=== PATIENT | male | born 1950 | race Caucasian/White ===

== ENCOUNTER 2018-06-10 05:55 | Emergency (ER) | payer MEDICARE, SELFPAY ==
[2018-06-10 05:57] VITALS: BP 127/65; PULSE 101; RESP 20; TEMP 36.8; O2SAT 94; BMI 32.0
--- NOTE | 2018-06-10 05:57 | RAD_ITS ---
STUDY: X-RAY CHEST REASON FOR EXAM: Male, 68 years old. Heaviness in the chest for 3 days. TECHNIQUE: Single AP portable view of the chest. COMPARISON: None. FINDINGS: The lungs are clear and expanded. There is no demonstrated pleural abnormality. Normal size heart. Normal mediastinum and zay. Normal visualized pulmonary arteries. There is atherosclerotic calcification of the aortic arch with tortuosity. There are degenerative changes of the visualized thoracic spine. Normal visualized ribs, clavicles, and shoulders. There is no demonstrated abnormality of the visualized soft tissue structures of the upper abdomen. RAD/Chest 1 View (Portable) IMPRESSION: No evidence for acute cardiopulmonary pathology. Electronically Signed: Keith Martínez MD at 6:58 EST , Service support ,
[2018-06-10 06:03] VITALS: O2SAT 93
[2018-06-10 06:20] LABS: Absolute Lymphocyte Count 1.33 X10^3/ul (0.83-4.51); Absolute Neutrophil Count 6.1 X10^3/uL (2.0-7.7); Basophil# 0.01 X10^3/uL; Basophil% 0.1 % (0-1); Eosinophils% 1.3 % (0-5); Hematocrit 41.9 % (40-54); Hemoglobin 14.1 g/dl (13.0-16.5); Lymphocyte # 1.33 X10^3/ul (4.0); Lymphocyte % 16.6 % (19-41); Mean Corp Hgb Conc 33.7 g/gl (32-36); Mean Corpuscular Hgb 28.7 pg (27.0-32.0); Mean Corpuscular Volume 85.3 fL (80-94); Mean Platelet Vol. 9.3 fl (6.2-12.0); Monocyte# 0.46 X10^3/uL; Monocyte% 5.8 % (0-10); Neutrophil # 6.09 X10^3/uL (2.7-7.7); Neutrophil % 76.1 % (47-70); Platelet Count 144 K/mm3 (150-450); RBC Distribution Width SD 40.6 fl (35.1-43.9); Red Blood Count 4.91 M/mm3 (4.6-6.2)
[2018-06-10 06:26] LABS: POSITIVE COUNT NO; POSITIVE DIFFERENTIAL NO; POSITIVE MORPHOLOGY NO
[2018-06-10 06:37] LABS: Anion Gap 12 (5-15); BUN 13 mg/dL (7-18); BUN/Creat Ratio 15.6 RATIO (10-20); Calcium,Total 8.7 mg/dL (8.5-10.1); Chloride 101 mmol/L (98-107); Creatinine, Serum 0.83 mg/dL (0.70-1.30); EST Glomerular Filtration Rate 97 mL/min (>60); Est Glom Filt Rate - Afr Amer 117 mL/min (>60); Estimated Creatinine Clearance 85.51 ml/min; Glucose 181 mg/dL (74-106); Potassium 4.1 mmol/L (3.5-5.1); Sodium Level 137 mmol/L (136-145)
[2018-06-10 06:48] VITALS: BP 108/70; PULSE 80; RESP 17; O2SAT 93
--- NOTE | 2018-06-10 07:30 | ED.VISSUMM ---
- ER Visit Summary Date of Service: 06/10/18 Chief Complaint: Chest pain History of Present Illness: The patient is a [address] Ramos. He reports this chest pain began 3 days ago. It is a constant heaviness and pressure that he states is 4 out of 10 at worst and 2 out of 10 currently. It is worsened by laying down. It is unchanged with exertion, breathing, or movement. He states that he did get relief with cayenne pepper. He had no relief with nitroglycerin. There are no associated symptoms. No nausea, vomiting, diaphoresis, or shortness of breath. Physical Examination: Vitals: Stable. Afebrile. General: Well-nourished and well-developed. Head: Normocephalic atraumatic. Neck: Supple, no lymphadenopathy. No JVD. Nontender. Cardiovascular: Regular rate and rhythm. No murmurs. Respiratory: No respiratory distress. Clear to auscultation bilaterally. Abdominal: Soft, nontender, nondistended, normal bowel sounds. No guarding, rebound, or peritoneal signs. Back: Nontender. Extremities: Nontender, no edema. Skin: Normal color, no rash. Neurologic: Alert and oriented ?3. Cranial nerves II through XII are intact. Normal strength and sensation. Psych: Normal affect. Test Results: EKG is sinus at [address] changes. There is no old EKG for comparison. Troponin is negative. Chem-7 is more for glucose of 181. CBC is more for platelets 144, segmented neutrophils of 76, lymphocytes of 17. Chest x-ray is normal. Emergency Department Course and Treatment: Patient was treated with aspirin. He is resting comfortably. Treatment Plan: I discussed treatment options with the patient. I wanted to admit him to the hospital for stress test and further evaluation. He is refusing this. The patient was discussed with Dr. Weiss who agrees that he should stay and would like him to be signed out AGAINST MEDICAL ADVICE. I discussed this with the patient who continues to refuse to stay. I had a prolonged discussion with him about the possible risks of this. He understands these risks and seems to have the capacity to make this decision. Return to the emergency department for any worsening symptoms. Disposition: To home AGAINST MEDICAL ADVICE. Impression: 1. Atypical chest pain. 2. [place] score of 2. 3. Left AMA. This note was generated with Dragon dictation software. It may contain incorrect words, spelling, and punctuation that were not noted in review of the chart prior to signing ED Disposition - Plan for ED Patient: Chief Complaint: Chest Pain Instructions: ED Chest Pain Atypical Unkn Cause Referrals: Jc Weiss MD [STAFF PHYSICIAN] - As soon as possible Additional Instructions: Take a baby aspirin every day.
[2018-06-10 08:02] VITALS: BP 112/77; PULSE 75; RESP 16; O2SAT 94
[2018-06-10 11:46] LABS: Erythrocyte Sedimentation Rate 9 mm/hr (0-20)
== END 2018-06-10 08:22 | disposition left against medical advice (07) ==
PROVIDERS: Emergency Provider Emergency Medicine; Family Provider Family Medicine; PCP Family Medicine
DX: R07.89 Other chest pain (principal); E11.9 Type 2 diabetes mellitus without complications; I10 Essential (primary) hypertension; K21.9 Gastro-esophageal reflux disease without esophagitis; Z79.84 Long term (current) use of oral hypoglycemic drugs; Z79.899 Other long term (current) drug therapy
CPT/HCPCS: 71045; 80048; 84484; 85025; 85652; 93005

== ENCOUNTER 2018-06-10 20:26 | Observation (INO) | payer MEDICARE, SELFPAY ==
[2018-06-10 05:57] VITALS: BMI 32.0
[2018-06-10 20:27] VITALS: BP 139/85; PULSE 77; RESP 20; TEMP 36.6; O2SAT 93; BMI 32.3
--- NOTE | 2018-06-10 21:33 | ED.VISSUMM ---
- ER Visit Summary Date of Service: 06/10/18 Chief Complaint: Chest pressure History of Present Illness: The patient is a 68 M presents for evaluation of chest pressure. Patient was seen this morning for the same complaint and left AGAINST MEDICAL ADVICE because he did not want to sit around in the hospital all day waiting for further testing to be done tomorrow morning. Patient is still having the substernal chest pressure. It does not radiate. He denies any shortness of breath, fever, cough, abdominal pain, nausea or vomiting or other complaints. Pain is worse with lying flat and improved with sitting straight up. It has been present for 3 days, with acute worsening early this morning. Patient states symptoms have subsided during the day and it is currently a 1 out of 10. He took a full aspirin prior to coming back to the emergency department and has been taking cayenne pepper for the pain. History of diabetes, hypertension, hyperlipidemia and fast heart rate. No tobacco use. Physical Examination: Vital signs: afebrile, hemodynamically stable, no hypoxia on room air General: well nourished, well developed, in no distress Skin: warm, dry, no rash, no pallor HEENT: normocephalic and atraumatic; PERRL, EOMI, moist mucous membranes Cardiovascular: regular rate and rhythm without murmurs, no peripheral edema, 2+ pulses all distal extremities Respiratory: No increased work of breathing, lungs are clear to auscultation bilaterally, no rales, rhonchi or wheezing Abdominal: Abdomen is soft, nontender with normoactive bowel sounds, no guarding or rebound, no masses MSK: Moves all extremities, no deformities, normal strength Neuro: Awake and alert, oriented ?4. No facial droop, sensation and motor function intact and symmetric Test Results: Abnormal Lab Results 06/10/18 06/10/18 06/10/18 20:52 20:52 20:52 D-Dimer Quant (PE/DVT) 1.02 H* Troponin I < 0.015 C-React Prot Ext Range < 2.90 Medications Given Discontinued Medications Enoxaparin Sodium (Lovenox) 100 mg SC X1 ONE Stop: 06/10/18 22:13 Last Admin: 06/10/18 22:50 Dose: 100 mg Ibuprofen (Motrin) 600 mg PO X1 ONE Stop: 06/10/18 22:14 Last Admin: 06/10/18 22:50 Dose: 600 mg Nitroglycerin (Nitrostat) 0.4 mg SUBLINGUAL Q5M CRISTAL Stop: 06/10/18 21:41 Last Admin: 06/10/18 21:54 Dose: Not Given Admin: 06/10/18 21:46 Dose: 0.4 mg Admin: 06/10/18 21:41 Dose: 0.4 mg Emergency Department Course and Treatment: Patient presents for further evaluation of his chest pressure after leaving AMA this morning. EKG was repeated and showed no changes from this morning. Troponin remained negative. Patient was discussed with Dr. Weiss, who stated patient could still be admitted for an echo and stress test tomorrow morning. We discussed the normal ESR, and Dr. Weiss requested a CRP also be performed, which was normal. Because the patient has had positional change in his pain and it is been constant with no changes in the troponin, we discussed the possibility of a pulmonary embolism. Patient has no risk factors for PE and no pleuritic chest pain, hypoxia, tachycardia or shortness of breath. A d-dimer was performed and was mildly elevated at 1. Patient was admitted for further chest pain rule out. The d-dimer result returned after patient was admitted, and was discussed with the hospitalist. Treatment Plan: [] Disposition: [] Impression: Chest pain, concern for ACS, elevated d-dimer This note was generated with [employer] dictation software. It may contain incorrect words, spelling, and punctuation that were not noted in review of the chart prior to signing ED Disposition - Plan for ED Patient: Disposition: Acute Care [facility] Chief Complaint: Chest Pain
[2018-06-10 21:41] VITALS: BP 126/62; PULSE 81
[2018-06-10 21:43] VITALS: BP 126/62; PULSE 86; RESP 20; O2SAT 98
[2018-06-10 21:46] VITALS: BP 108/57; PULSE 84
[2018-06-10 22:39] LABS: CRP < 2.90 mg/L (0.0-3.0)
[2018-06-10] MEDS: Enoxaparin 100 MG/ML Syringe SC (22:50)
[2018-06-10] MEDS: Ibuprofen 600 MG Tablet PO (22:50)
[2018-06-10 22:53] VITALS: BP 107/59; PULSE 275; RESP 16; O2SAT 96
--- NOTE | 2018-06-10 23:11 | HP.PCM_ITS ---
History of Present Illness Date of Admission: 06/11/18 Chief Complaint: chest pressure The patient is a 68 year old M with a PMH of hypertension admitted through the ED on with a complaint of chest pressure. He says he was woken up at 3am by this pressure like pain, which he said was mild. He had no associated shortness of breath, palpitation, dizziness or lightheadedness. Review of systems otherwise negative. He came into the ED in the morning where EKG was negative and troponins were negative. He was due to admitted for stress test tomorrow but he decided to sign out AGAINST MEDICAL ADVICE because he did not see the point of staying in the hospital till the next day. However I do he decided to come back this evening to be admitted for the stress test tomorrow. Troponins and EKG were negative. He is being admitted to be managed for chest pain to rule out ACS. Past Medical History Allergies glyburide Allergy (Verified 06/10/18 20:39) Rash sulindac [From Clinoril] Allergy (Verified 06/10/18 20:39) Rash Home Medications: Ambulatory Orders Medication Instructions Recorded [place] 3 mg PO DAILY 06/10/18 Cider Vinegar [Apple Cider Vinegar] 600 mg PO DAILY 06/10/18 Glipizide 5 mg PO BID 06/10/18 Lisinopril [Zestril] 20 mg PO DAILY 06/10/18 Metformin HCl 500 mg PO 4X/DAY 06/10/18 Metoprolol Tartrate 25 mg PO BID 06/10/18 Multivitamin [Multiple Vitamins] 1 tab PO DAILY 06/10/18 Niacin 500 mg PO 4X/DAY 06/10/18 [place] 3 Fish Oil Softgel 1 tab PO DAILY 06/10/18 Oxybutynin Chloride [Ditropan Xl] 10 mg PO DAILY 06/10/18 Sitagliptin Phosphate [Januvia] 100 mg PO DAILY 06/10/18 Sumatriptan Succinate [Imitrex] 50 mg PO .X1 PRN 06/10/18 Tamsulosin HCl [Flomax] 0.4 mg PO DAILY 06/10/18 Calcium Citrate/Vitamin D3 1,000 mg PO 4X/DAY 06/11/18 [Calcium Citrate - Vit D Tablet] Omeprazole 20 mg PO DAILY 06/11/18 Surgical History: - - rotator cuff surgery Psychiatric History: No pertinent psych hx Lives: With Family Smoking Status: Never smoker Alcohol: None Drugs: None - *Family History Maternal History Items: No pertinent history Paternal History Items: No pertinent history Review of Systems Constitutional: Denies: Chills, Fever, Weight Change Eyes: Denies: Blurred vision HEENT: Denies: Head Aches, Sinus Congestion, Sinus Drainage Cardiovascular: Denies: Chest Pain, Palpitations Respiratory: Denies: Cough, Shortness of Breath, Shortness of breath at rest, Sputum production Gastrointestinal: Denies: Abdominal Pain, Nausea, Vomiting Genitourinary: Denies: Dysuria Musculoskeletal: Denies: Joint Pain, Joint Tenderness Skin: Denies: Rash, Wounds Neurological: Denies: Numbness, Tingling, Focal weakness Psychiatric: Denies: Anxiety, Depression, Homicidal Ideations, Suicidal Ideations Hematologic/ Lymphatic: Denies: Easy Bruising, Easy Bleeding VTE Information - Inpt Only VTE Present on Admission: No VTE Pharm Prophylaxis ordered?: Yes - Physical Exam General: Alert, Oriented x3, Cooperative, No apparent distress HEENT: Atraumatic, PERRLA, EOMI, Normocephalic Oral: Moist Mucosa Neck: Supple, No JVD, Negative Carotid Bruits Lungs: Clear to auscultation, Normal air movement, No rhonchi, No wheeze, No rales Cardiovascular: Regular rate, Regular Rhythm, Normal S1, Normal S2, No murmurs Abdomen: Bowel Sounds Present, Soft, Non Tender, Non-Distended, No Hepato- splenomegaly Extremities: No clubbing, No cyanosis, No edema, Capillary Refill Less than 3 Seconds Skin: No rashes, No breakdown Musculoskeletal: No Tenderness to Palpation of Joints or Extremities Lymphatic: No Cervical, Supraclavicular, or Inguinal Adenopathy Neurological: Cranial nerves II-XII grossly intact Psych/Mental Status: Normal Affect, Appropriate, Alert and oriented to time, place, person, mood and affect Vital Signs Temp Pulse Resp BP Pulse Ox 97.9 F 275 H 16 107/59 L 96 06/10/18 20:27 06/10/18 22:53 06/10/18 22:53 06/10/18 22:53 06/10/18 22:53 Oxygen Flow Rate (L/min) 2 Oxygen Delivery Method Nasal Cannula Weight: 225 lb 12.054 oz Body Mass Index (BMI) 32.3 Laboratory Tests Past 24 Hrs 06/10/18 06/10/18 06/10/18 20:52 20:52 20:52 D-Dimer Quant (PE/DVT) Pending Troponin I < 0.015 C-React Prot Ext Range < 2.90 Assessment/Plan 68 y/o presenting with a complaint of chest pain for 1 day 1. Chest pain, to rule out ACS * Describes chest pain as mild and more pressure-like. * Initial troponin negative. EKG showed no acute ST changes. * D-dimer elevated at 1.02. * Will order CT angiogram to rule out PE. 2. Elevated D Dimer: * D dimer is 1.02. CT angiogram ordered, showed no PE. * Large hiatal hernia and right adrenal adenoma. Thyroid nodules; to follow up with thyroid [facility] on outpatient basis. * 3. Diabetes mellitus: on glipizide and metformin and linagliptin. Will hold in preparation for possible stress test tomorrow morning. ISS. Accuchecks ACHS 4. BPH: on flomax 5. Hypertension: on lisinopril. 6. Right adrenal nodule * incidental finding on CTA * low atenuation nodule, consistent with adenoma * to follow up with PCP and consultative sales associate upon discharge. * DVT prophylaxis: lovenox Code Visit OBSV E&M: 89299 Initial observation care L3
[2018-06-10 23:13] LABS: D-Dimer Quantitative (DVT/PE) 1.02 FEU/ug/m (0.27-0.49)
[2018-06-11] VITALS (9 sets, daily range): BP systolic 100–131; BP diastolic 64–80; PULSE 68–98; RESP 16–18; TEMP 36.4–36.6; O2SAT 93–95; BMI 31.6
--- NOTE | 2018-06-11 01:37 | CT_ITS ---
STUDY: CTA CHEST REASON FOR EXAM: Male, 68 years old. Chest pressure for 3 days. Elevated d-dimer. History of hypertension and diabetes. RADIATION DOSAGE (If Supplied By Facility): CTDIvol = ( 23.15 ) mGy, DLP = ( 718.98 ) mGycm TECHNIQUE: The examination was performed with the intravenous administration of 100ml ml of Isovue 300 contrast material. Post-processing of the angiographic images was performed, with multiplanar reformation, but without 3D reconstruction. Individualized dose optimization techniques were used for this CT. COMPARISON: Chest x-ray 06/10/2018. FINDINGS: There are small thyroid nodules. Normal enhancement of the main pulmonary artery and right and left pulmonary arteries. Normal enhancement of the bilateral peripheral pulmonary arteries. There is no demonstrated pulmonary embolism. There is mild atherosclerotic calcification of the thoracic aorta and visualized great vessels. There is no demonstrated aortic dissection. Normal heart and pericardium. There are coronary artery calcifications. Normal mediastinum. Normal hilar regions. Normal visualized trachea and bronchi. The lungs are mildly under expanded. Normal pulmonary parenchyma. There is a calcified pulmonary granuloma in the right upper lobe. Normal pleura. Normal chest wall structures. There are degenerative changes of thoracic spine. There is a large hiatal hernia. There is a 3.5 cm low-attenuation right adrenal nodule, consistent with an adenoma. Small cysts in the right and left lobes of the liver. CT/CTA Chest W/WO Contrast IMPRESSION: No demonstrated pulmonary embolism, aortic aneurysm, or aortic dissection. Atherosclerosis. No evidence for acute cardiopulmonary pathology. Large hiatal hernia. Right adrenal adenoma. Thyroid nodules. Suggest elective follow-up thyroid ultrasound. Electronically Signed: Keith Martínez MD at 3:09 EST , Service support ,
[2018-06-11 03:06] LABS: Absolute Lymphocyte Count 1.84 X10^3/ul (0.83-4.51); Absolute Neutrophil Count 3.1 X10^3/uL (2.0-7.7); Basophil# 0.01 X10^3/uL; Basophil% 0.2 % (0-1); Eosinophil# 0.15 X10^3/uL; Eosinophils% 2.7 % (0-5); Hematocrit 38.8 % (40-54); Hemoglobin 13.2 g/dl (13.0-16.5); Lymphocyte # 1.84 X10^3/ul (4.0); Lymphocyte % 33.2 % (19-41); Mean Corpuscular Hgb 29.5 pg (27.0-32.0); Mean Corpuscular Volume 86.6 fL (80-94); Mean Platelet Vol. 9.9 fl (6.2-12.0); Monocyte# 0.47 X10^3/uL; Monocyte% 8.5 % (0-10); Neutrophil # 3.08 X10^3/uL (2.7-7.7); Neutrophil % 55.4 % (47-70); POSITIVE COUNT NO; POSITIVE DIFFERENTIAL NO; POSITIVE MORPHOLOGY NO; Platelet Count 147 K/mm3 (150-450); RBC Distribution Width CV 12.8 % (11.6-14.6); RBC Distribution Width SD 39.4 fl (35.1-43.9); Red Blood Count 4.48 M/mm3 (4.6-6.2); White Blood Count 5.6 K/mm3 (4.4-11.0)
[2018-06-11 03:12] LABS: International Normalized Ratio 1.1; Prothrombin Time (Protime)PT. 14.4 SECONDS (11.7-14.9)
[2018-06-11 03:13] LABS: Partial Thromboplast Time 35.5 Seconds (24.1-36.2)
[2018-06-11 03:19] LABS: Anion Gap 11 (5-15); BUN 13 mg/dL (7-18); BUN/Creat Ratio 15.7 RATIO (10-20); Calcium,Total 8.6 mg/dL (8.5-10.1); Chloride 102 mmol/L (98-107); Creatinine, Serum 0.83 mg/dL (0.70-1.30); EST Glomerular Filtration Rate 97 mL/min (>60); Est Glom Filt Rate - Afr Amer 118 mL/min (>60); Estimated Creatinine Clearance 85.51 ml/min; Glucose 104 mg/dL (74-106); Potassium 3.8 mmol/L (3.5-5.1); Sodium Level 139 mmol/L (136-145)
[2018-06-11] MEDS: Lisinopril 20 MG Tablet PO (06:35)
[2018-06-11 07:21] LABS: Bedside Glucose 125 mg/dL (70-110)
--- NOTE | 2018-06-11 08:00 | ECHOD_ITS ---
Reason For Study: Chest Pain Procedure This was a 2D Doppler, Color Flow transthoracic echocardiogram. The exam was of adequate technical quality. Exam performed in department. Left Ventricle Normal LV size. Apical false tendon noted. Left ventricular systolic function is normal. The estimated ejection fraction is 65 %. No evidence for diastolic dysfunction. No regional wall motion abnormalities noted. Right Ventricle Normal RV size. Normal systolic function. Atria Normal left atrium. Normal right atrium. No doppler evidence for ASD. Mitral Valve There is no mitral annular calcification. Normal mitral valve. Trivial mitral valve insufficiency. Tricuspid Valve Normal tricuspid valve. Trivial tricuspid valve insufficiency. Right ventricular systolic pressure estimated to be 26 mmHg. Aortic Valve Trisinus/trileaflet aortic valve. Mild focal aortic valve thickening. Pulmonic Valve The pulmonic valve is not well visualized. Trivial pulmonic valve insufficiency. Great Vessels Normal sized aortic root. Pericardium/Pleural No pericardial effusion. MMode/2D Measurements & Calculations LVIDd: 5.1 cm IVSd: 0.98 cm Ao root diam: 3.7 cm LVIDs: 3.7 cm LVPWd: 0.89 cm LA dimension: 3.6 cm RVDd: 3.9 cm FS: 27.1 % LAV(MOD-sp4): 50.5 ml LA A4 area: 19.3 cm2 RA A4 area: 17.4 cm2 Time Measurements MV dec time: 0.25 sec Doppler Measurements & Calculations MV E max heriberto: 64.4 cm/sec Lat Peak E' Heriberto: 9.1 cm/sec Med Peak E' Heriberto: 5.7 cm/sec MV A max heriberto: 79.9 cm/sec E/E' lat: 7.1 E/E' med: 11.3 MV E/A: 0.81 MV V2 max: 91.2 cm/sec MV P1/2t max heriberto: 71.8 cm/sec Ao V2 max: 94.9 cm/sec MV max P.3 mmHg MV P1/2t: 106.8 msec Ao max P.6 mmHg MV V2 mean: 52.0 cm/sec MV dec slope: 197.0 cm/sec2 MV mean P.2 mmHg MVA(P1/2t): 2.1 cm2 MV V2 VTI: 22.9 cm LV V1 max: 78.6 cm/sec PA V2 max: 104.0 cm/sec TR max heriberto: 240.7 cm/sec LV V1 max P.5 mmHg TR max P.2 mmHg Interpretation Summary Left ventricular systolic function is normal. The estimated ejection fraction is 65 %. Apical false tendon noted. Trivial mitral valve insufficiency. Trivial tricuspid valve insufficiency. Mild focal aortic valve thickening. Trivial pulmonic valve insufficiency. Right ventricular systolic pressure estimated to be 26 mmHg. No evidence for diastolic dysfunction. Ordering Physician: Brandi Porras Referring Physician: Levon Ramos Performed By: Jaron Islas RCS
--- NOTE | 2018-06-11 10:02 | STRESSREP ---
Stress Test Report Date: 06/11/2018 Procedure: Stress nuclear imaging study Indications: Chest pain Consent: Per the patient Procedure: The patient exercised on a Klaus protocol for 3 minutes Completing Stage I achieving a peak heart rate of 150 beats per minute (100% predicted maximal heart rate) with a peak blood pressure of 152/80 mmHg and a peak MET capacity of approximately 4 METS. The patient had a baseline ECG demonstrated normal sinus rhythm. The peak exercise ECG demonstrated somatic/motion artifact with no obvious ECG changes. There were occasional PVCs pretest and during recovery. The functional capacity was considered decreased. The patient complained of chest discomfort pretest, during exercise, and recovery without significant change. The examination was discontinued secondary to leg discomfort and dyspnea. Impression: 1. Technically adequate (percent predicted maximal heart rate greater than 85%) exercise tolerance test 2. Peak exercise ECG was semantic/motion artifact with no obvious ECG changes 3. Occasional PVC pretest and during recovery 4. Nuclear images pending Myocardial perfusion imaging study: Technique: The patient was injected with 14.6 mci of technetium 99 M Cardiolite and subsequently rest SPECT Cardiolite nuclear imaging was obtained in the horizontal long, vertical long, and short axis views. The patient exercised on a Klaus protocol for 3 minutes completing Stage I achieving a peak heart rate of 150 beats per minute (100% predicted maximal heart rate) with a peak blood pressure 152/80 mmHg and a peak MET capacity of approximately 4 months. The patient was injected with 44.7 mci of technetium 99 M Cardiolite and subsequently stress SPECT Cardiolite nuclear imaging was obtained in the horizontal long, vertical long, and short axis views. A gated Cardiolite study at peak stress was obtained. Interpretation: Rest and stress SPECT Cardiolite nuclear imaging demonstrate relative uniform tracer uptake with a small area of subtle diminished tracer uptake in the apical views appearing compatible with apical physiologic thinning. There is end systolic thickening and brightening. The gated Cardiolite study demonstrates myocardial thickening and inward wall motion. The reported LVEF is 64 per cent. Impression: 1. Rest and stress SPECT Cardiolite nuclear imaging demonstrate myocardial perfusion changes appearing compatible with physiologic apical thinning with no myocardial perfusion changes considered diagnostic for associated stress induced myocardial ischemia or previous myocardial injury/infarction. 2. The gated Cardiolite study reports an LVEF of 64%. This note was generated using a voice recognition system and there may be incorrect words, spelling or punctuation that were not noted when reviewing the office note prior to saving.
[2018-06-11 11:21] LABS: Bedside Glucose 221 mg/dL (70-110)
--- NOTE | 2018-06-11 12:44 | DCINST_ITS ---
You will use the following diet at home:: Regular, Other - avoid spicy foods and cayanne pills. Your food should be the consistency of: Regular Your liquids should be the consistency of: Regular/Thin Call your doctor if you observe: Fever of 101 or Higher, Shortness of breath, Chest pain Allergies/Adverse Reactions: Allergies glyburide Allergy (Verified 06/10/18 20:39) Rash sulindac [From Clinoril] Allergy (Verified 06/10/18 20:39) Rash Medications to take at Discharge Glipizide 5 mg PO BID 06/10/18 Lisinopril [Zestril] 20 mg PO DAILY 06/10/18 Metoprolol Tartrate 25 mg PO BID 06/10/18 Multivitamin [Multiple Vitamins] 1 tab PO DAILY 06/10/18 Niacin 500 mg PO 4X/DAY 06/10/18 [place] 3 Fish Oil Softgel 1 tab PO DAILY 06/10/18 Oxybutynin Chloride [Ditropan Xl] 10 mg PO DAILY 06/10/18 Sitagliptin Phosphate [Januvia] 100 mg PO DAILY 06/10/18 Sumatriptan Succinate [Imitrex] 50 mg PO .X1 PRN 06/10/18 Tamsulosin HCl [Flomax] 0.4 mg PO DAILY 06/10/18 Calcium Citrate/Vitamin D3 [Calcium Citrate - Vit D Tablet] 1,000 mg PO 4X/DAY 06/11/18 Metformin HCl 500 mg PO 4X/DAY #0 06/11/18 Omeprazole 20 mg PO BID #0 06/11/18 Primary Care Physician: Levon Ramos DO [Primary Care Provider] - Test Results: Test results from this visit will be discussed in further detail at your follow- up appointment, if applicable. Please Follow Up With: tourist camp attendant When: next scheduled appointment. Proposed Discharge Date: 06/11/18
--- NOTE | 2018-06-11 12:44 | PCM.DC.SUM ---
Discharge Date and Diagnosis - Problem List Patient Problems: Active and Suspected Problems Chest pain (Acute) Date of Admission: 06/10/18 Date of Discharge: 06/11/18 - Primary Discharge Diagnosis Active and Suspected Problems Chest pain (Acute) Hospital Course and Treatment Imaging Results: 06/11/18 05:55 Nuclear Stress Test - Treadmil [NM] AM (NON MEDS) 06/11/18 08:00 Echo Complete [ECHO] Routine Clinical Impression(s) from Imaging Studies Chest CTA 06/11/18 01:37 IMPRESSION: No demonstrated pulmonary embolism, aortic aneurysm, or aortic dissection. Atherosclerosis. No evidence for acute cardiopulmonary pathology. Large hiatal hernia. Right adrenal adenoma. Thyroid nodules. Suggest elective follow-up thyroid ultrasound. Electronically Signed: Keith Martínez MD at 3:09 EST , Service support , Operations: None Procedures: None Summary of Care Provided: The patient is a 68 year old Loree Blevins with midsternal chest pain. Patient underwent CT angiogram of the chest of his neck well as a nuclear stress test that was also negative. Patient does have known GERD. Patient states that when he had his chest pain he took a Cayenne pill. Patient states that Cayenne makes everything better. Told him that the pain seems more consistent with reflux and advised against using cayenne [place] as well as to avoid spicy foods. Patient does not have a known history of GERD plus a history of Morley's esophagus. Patient has a follow-up appoint with his room service manager in the coming weeks for a screening colonoscopy. I advised patient to increase his omeprazole to twice daily for the next couple weeks and to follow-up with room service manager to see about possibly getting an EGD in the future. Spent several years since his last EGD. [] Patient Problems: Active and Suspected Problems Chest pain (Acute) - Physical Exam General: Alert, No apparent distress HEENT: Atraumatic, Normocephalic Oral: Moist Mucosa, No Gingival or Mucosal Lesions/ Ulcerations Lungs: Clear to auscultation, Normal air movement, No rhonchi, No wheeze Cardiovascular: Regular rate, Regular Rhythm, Normal S1, Normal S2, No murmurs Abdomen: Bowel Sounds Present, Soft, Non Tender, Non-Distended, No Hepato-splenomegaly Musculoskeletal: - - no reproducible chest wall tenderness. Vital Signs Temp Pulse Resp BP Pulse Ox 36.4 C L 98 16 131/67 H 95 06/11/18 09:13 06/11/18 10:55 06/11/18 09:13 06/11/18 09:13 06/11/18 09:19 Oxygen Flow Rate (L/min) 2 Oxygen Delivery Method Room Air Weight: 99.9 kg Body Mass Index (BMI) 31.6 Intake and Output for Last 24 Hours 06/09/18 06/10/18 06/11/18 23:59 23:59 23:59 Intake Total 240 / 240 Balance 240 / 240 Laboratory Tests Past 24 Hrs 06/10/18 06/10/18 06/10/18 20:52 20:52 20:52 WBC RBC Hgb Hct MCV MCH MCHC RDW RDW Differential Plt Count MPV Immature Gran % (Auto) Neut % (Auto) Lymph % (Auto) [place] % (Auto) Eos % (Auto) Baso % (Auto) Absolute Neuts (auto) Absolute Lymphs (auto) Total Counted PT INR APTT D-Dimer Quant (PE/DVT) 1.02 H* Sodium Potassium Chloride Carbon Dioxide Anion Gap BUN Creatinine Estim Creat Clear Calc Est GFR (MDRD) Af Amer Est GFR (MDRD) Non-Af BUN/Creatinine Ratio Glucose Calcium Troponin I < 0.015 C-React Prot Ext Range < 2.90 06/11/18 06/11/18 06/11/18 00:05 02:42 02:42 WBC 5.6 RBC 4.48 L Hgb 13.2 Hct 38.8 L MCV 86.6 MCH 29.5 MCHC 34.0 RDW 12.8 RDW Differential 39.4 Plt Count 147 L MPV 9.9 Immature Gran % (Auto) 0.000 Neut % (Auto) 55.4 Lymph % (Auto) 33.2 [place] % (Auto) 8.5 Eos % (Auto) 2.7 Baso % (Auto) 0.2 Absolute Neuts (auto) 3.1 Absolute Lymphs (auto) 1.84 Total Counted Not Reportable PT INR APTT D-Dimer Quant (PE/DVT) Sodium Potassium Chloride Carbon Dioxide Anion Gap BUN Creatinine Estim Creat Clear Calc Est GFR (MDRD) Af Amer Est GFR (MDRD) Non-Af BUN/Creatinine Ratio Glucose Calcium Troponin I < 0.015 < 0.015 C-React Prot Ext Range 06/11/18 06/11/18 02:42 02:42 WBC RBC Hgb Hct MCV MCH MCHC RDW RDW Differential Plt Count MPV Immature Gran % (Auto) Neut % (Auto) Lymph % (Auto) [place] % (Auto) Eos % (Auto) Baso % (Auto) Absolute Neuts (auto) Absolute Lymphs (auto) Total Counted PT 14.4 INR 1.1 APTT 35.5 D-Dimer Quant (PE/DVT) Sodium 139 Potassium 3.8 Chloride 102 Carbon Dioxide 26.0 Anion Gap 11 BUN 13 Creatinine 0.83 Estim Creat Clear Calc 85.51 Est GFR (MDRD) Af Amer 118 Est GFR (MDRD) Non-Af 97 BUN/Creatinine Ratio 15.7 Glucose 104 Calcium 8.6 Troponin I C-React Prot Ext Range POC Glucose 06/11/18 06/11/18 11:12 06:34 POC Glucose 221 H 125 H Discharge Diet: - - avoid spicy foods Discharge Activity: Return to Normal Activity Call your doctor if you observe: Fever of 101 or Higher, Shortness of breath, Chest pain Home Medications: Medications to take at Discharge Glipizide 5 mg PO BID 06/10/18 Lisinopril [Zestril] 20 mg PO DAILY 06/10/18 Metoprolol Tartrate 25 mg PO BID 06/10/18 Multivitamin [Multiple Vitamins] 1 tab PO DAILY 06/10/18 Niacin 500 mg PO 4X/DAY 06/10/18 [place] 3 Fish Oil Softgel 1 tab PO DAILY 06/10/18 Oxybutynin Chloride [Ditropan Xl] 10 mg PO DAILY 06/10/18 Sitagliptin Phosphate [Januvia] 100 mg PO DAILY 06/10/18 Sumatriptan Succinate [Imitrex] 50 mg PO .X1 PRN 06/10/18 Tamsulosin HCl [Flomax] 0.4 mg PO DAILY 06/10/18 Calcium Citrate/Vitamin D3 [Calcium Citrate - Vit D Tablet] 1,000 mg PO 4X/DAY 06/11/18 Metformin HCl 500 mg PO 4X/DAY #0 06/11/18 Omeprazole 20 mg PO BID #0 06/11/18 Primary Care Physician: Levon Ramos DO [Primary Care Provider] - Please Follow Up With: room service manager When: next scheduled appointment. Disposition: Home Minutes spent on discharge:: 30 Patient Condition:: Good Medical Necessity - Tobacco Use Smoking Status: Never smoker Meaningful Use Info Meaningful Use Diagnoses (Choose all that apply): None applicable Code Visit OBSV E&M: 76450 Observation care discharge
--- NOTE | 2018-06-11 12:47 | DS.PCM_ITS ---
Discharge Date and Diagnosis - Problem List Patient Problems: Active and Suspected Problems Chest pain (Acute) Date of Admission: 06/10/18 Date of Discharge: 06/11/18 - Primary Discharge Diagnosis Active and Suspected Problems Chest pain (Acute) Hospital Course and Treatment Imaging Results: 06/11/18 05:55 Nuclear Stress Test - Treadmil [NM] AM (NON MEDS) 06/11/18 08:00 Echo Complete [ECHO] Routine Clinical Impression(s) from Imaging Studies Chest CTA 06/11/18 01:37 IMPRESSION: No demonstrated pulmonary embolism, aortic aneurysm, or aortic dissection. Atherosclerosis. No evidence for acute cardiopulmonary pathology. Large hiatal hernia. Right adrenal adenoma. Thyroid nodules. Suggest elective follow-up thyroid ultrasound. Electronically Signed: Keith Martínez MD at 3:09 EST , Service support , Operations: None Procedures: None Summary of Care Provided: The patient is a 68 year old Loree Blevins with midsternal chest pain. Patient underwent CT angiogram of the chest of his neck well as a nuclear stress test that was also negative. Patient does have known GERD. Patient states that when he had his chest pain he took a Cayenne pill. Patient states that Cayenne m akes everything better. Told him that the pain seems more consistent with reflux and advised against using cayenne [place] as well as to avoid spicy foods. Patient does not have a known history of GERD plus a history of Morley's esophagus. Patient has a follow-up appoint with his materials clerk in the coming weeks for a screening colonoscopy. I advised patient to increase his omeprazole to twice daily for the next couple weeks and to follow-up with materials clerk to see about possibly getting an EGD in the future. Spent several years since his last EGD. [] Patient Problems: Active and Suspected Problems Chest pain (Acute) - Physical Exam General: Alert, No apparent distress HEENT: Atraumatic, Normocephalic Oral: Moist Mucosa, No Gingival or Mucosal Lesions/ Ulcerations Lungs: Clear to auscultation, Normal air movement, No rhonchi, No wheeze Cardiovascular: Regular rate, Regular Rhythm, Normal S1, Normal S2, No murmurs Abdomen: Bowel Sounds Present, Soft, Non Tender, Non-Distended, No Hepato- splenomegaly Musculoskeletal: - - no reproducible chest wall tenderness. Vital Signs Temp Pulse Resp BP Pulse Ox 36.4 C L 98 16 131/67 H 95 06/11/18 09:13 06/11/18 10:55 06/11/18 09:13 06/11/18 09:13 06/11/18 09:19 Oxygen Flow Rate (L/min) 2 Oxygen Delivery Method Room Air Weight: 99.9 kg Body Mass Index (BMI) 31.6 Intake and Output for Last 24 Hours 06/09/18 06/10/18 06/11/18 23:59 23:59 23:59 Intake Total 240 / 240 Balance 240 / 240 Laboratory Tests Past 24 Hrs 06/10/18 06/10/18 06/10/18 20:52 20:52 20:52 WBC RBC Hgb Hct MCV MCH MCHC RDW RDW Differential Plt Count MPV Immature Gran % (Auto) Neut % (Auto) Lymph % (Auto) [place] % (Auto) Eos % (Auto) Baso % (Auto) Absolute Neuts (auto) Absolute Lymphs (auto) Total Counted PT INR APTT D-Dimer Quant (PE/DVT) 1.02 H* Sodium Potassium Chloride Carbon Dioxide Anion Gap BUN Creatinine Estim Creat Clear Calc Est GFR (MDRD) Af Amer Est GFR (MDRD) Non-Af BUN/Creatinine Ratio Glucose Calcium Troponin I < 0.015 C-React Prot Ext Range < 2.90 06/11/18 06/11/18 06/11/18 00:05 02:42 02:42 WBC 5.6 RBC 4.48 L Hgb 13.2 Hct 38.8 L MCV 86.6 MCH 29.5 MCHC 34.0 RDW 12.8 RDW Differential 39.4 Plt Count 147 L MPV 9.9 Immature Gran % (Auto) 0.000 Neut % (Auto) 55.4 Lymph % (Auto) 33.2 [place] % (Auto) 8.5 Eos % (Auto) 2.7 Baso % (Auto) 0.2 Absolute Neuts (auto) 3.1 Absolute Lymphs (auto) 1.84 Total Counted Not Reportable PT INR APTT D-Dimer Quant (PE/DVT) Sodium Potassium Chloride Carbon Dioxide Anion Gap BUN Creatinine Estim Creat Clear Calc Est GFR (MDRD) Af Amer Est GFR (MDRD) Non-Af BUN/Creatinine Ratio Glucose Calcium Troponin I < 0.015 < 0.015 C-React Prot Ext Range 06/11/18 06/11/18 02:42 02:42 WBC RBC Hgb Hct MCV MCH MCHC RDW RDW Differential Plt Count MPV Immature Gran % (Auto) Neut % (Auto) Lymph % (Auto) [place] % (Auto) Eos % (Auto) Baso % (Auto) Absolute Neuts (auto) Absolute Lymphs (auto) Total Counted PT 14.4 INR 1.1 APTT 35.5 D-Dimer Quant (PE/DVT) Sodium 139 Potassium 3.8 Chloride 102 Carbon Dioxide 26.0 Anion Gap 11 BUN 13 Creatinine 0.83 Estim Creat Clear Calc 85.51 Est GFR (MDRD) Af Amer 118 Est GFR (MDRD) Non-Af 97 BUN/Creatinine Ratio 15.7 Glucose 104 Calcium 8.6 Troponin I C-React Prot Ext Range POC Glucose 06/11/18 06/11/18 11:12 06:34 POC Glucose 221 H 125 H Discharge Diet: - - avoid spicy foods Discharge Activity: Return to Normal Activity Call your doctor if you observe: Fever of 101 or Higher, Shortness of breath, Chest pain Home Medications: Medications to take at Discharge Glipizide 5 mg PO BID 06/10/18 Lisinopril [Zestril] 20 mg PO DAILY 06/10/18 Metoprolol Tartrate 25 mg PO BID 06/10/18 Multivitamin [Multiple Vitamins] 1 tab PO DAILY 06/10/18 Niacin 500 mg PO 4X/DAY 06/10/18 [place] 3 Fish Oil Softgel 1 tab PO DAILY 06/10/18 Oxybutynin Chloride [Ditropan Xl] 10 mg PO DAILY 06/10/18 Sitagliptin Phosphate [Januvia] 100 mg PO DAILY 06/10/18 Sumatriptan Succinate [Imitrex] 50 mg PO .X1 PRN 06/10/18 Tamsulosin HCl [Flomax] 0.4 mg PO DAILY 06/10/18 Calcium Citrate/Vitamin D3 [Calcium Citrate - Vit D Tablet] 1,000 mg PO 4X/DAY 06/11/18 Metformin HCl 500 mg PO 4X/DAY #0 06/11/18 Omeprazole 20 mg PO BID #0 06/11/18 Primary Care Physician: Levon Ramos DO [Primary Care Provider] - Please Follow Up With: materials clerk When: next scheduled appointment. Disposition: Home Minutes spent on discharge:: 30 Patient Condition:: Good Medical Necessity - Tobacco Use Smoking Status: Never smoker Meaningful Use Info Meaningful Use Diagnoses (Choose all that apply): None applicable Code Visit OBSV E&M: 62115 Observation care discharge
== END 2018-06-11 12:44 | disposition home or self-care (01) ==
LOC: ED 22:06 → PCU 23:41
PROVIDERS: Admitting Provider Student in an Organized Health Care Education/Training Program; Emergency Provider Emergency Medicine; Family Provider Family Medicine; PCP Family Medicine
DX: R07.89 Other chest pain (principal); E11.9 Type 2 diabetes mellitus without complications; E78.5 Hyperlipidemia, unspecified; I10 Essential (primary) hypertension; R00.0 Tachycardia, unspecified; Z79.899 Other long term (current) drug therapy; Z79.84 Long term (current) use of oral hypoglycemic drugs; K44.9 Diaphragmatic hernia without obstruction or gangrene; D35.01 Benign neoplasm of right adrenal gland; N40.0 Benign prostatic hyperplasia without lower urinary tract symptoms; K21.9 Gastro-esophageal reflux disease without esophagitis
CPT/HCPCS: 71045; 71275; 78452; 80048; 82962; 84484; 85025; 85379; 85610; 85652; 85730; 86140; 93005; 93017; 93306; 96372; 99218; 99285; A9500; Q9967; A4216; G0378

== ENCOUNTER → 2019-01-03 20:00 | Outpatient (CLI) | payer MEDICARE, SELFPAY ==
[2018-06-11 00:04] VITALS: BMI 31.6
== END ==
PROVIDERS: Family Provider Family Medicine; PCP Family Medicine
DX: G47.33 Obstructive sleep apnea (adult) (pediatric) (principal); Z99.89 Dependence on other enabling machines and devices
CPT/HCPCS: 95811

== ENCOUNTER → 2024-07-10 | Outpatient (CLI) | payer MEDICARE, SELFPAY ==
--- NOTE | 2024-07-10 14:50 | CT_ITS ---
STUDY: CT ABDOMEN AND PELVIS WITH CONTRAST - URINARY TRACT REASON FOR EXAM: Male, 74 years old. Constipation RADIATION DOSAGE (If Supplied By Facility): CTDIvol = ( 15.62 ) mGy, DLP = ( 1118.20 ) mGycm TECHNIQUE: Oral and amp; IV Readi-CAT and amp; 100mL Isovue-300 was administered. Transaxial images were obtained from the dome of the diaphragm to the symphysis pubis subsequent to intravenous contrast administration. In the arterial, nephrographic and excretory phases. Multiplanar coronal and sagittal images were reformatted. The protocol utilizes one or more of the following dose reduction techniques: automated exposure control, adjustment of mA and/or kV according to patient size,and/or use of iterative reconstruction technique. COMPARISON: CT a of the chest dated June 11, 2018 FINDINGS: The visualized lung bases are unremarkable. There are coronary artery calcifications. There are scattered low-attenuation foci throughout the liver that were present on the prior examination which may reflect cysts and/or hemangiomas. Normal gallbladder and extrahepatic biliary system. Normal spleen. Normal pancreas. There is a stable predominantly low in attenuation right adrenal nodule measuring up to 2.8 cm suggestive of an adenoma. There is a small to moderate-sized hiatal hernia. Normal small intestine. There is a moderate amount of stool throughout the colon and rectum. There are diverticula arising from the colon. The appendix is visualized and appears normal. There is diffuse atherosclerotic calcification of the abdominal aorta, without a demonstrated aneurysm. No retroperitoneal adenopathy. There is a right renal cyst. Normal left kidney. The prostate gland is enlarged and nodular protruding into the posterior urinary bladder. There appear to be radiation gonzalez within the prostate gland. Normal abdominal wall. There are diffuse degenerative changes of the visualized lumbar spine. There is a sclerotic focus within the L1 vertebral body. CT/Abdomen/Pelvis WITH Contrast IMPRESSION: Moderate amount of stool throughout the colon and rectum. Enlarged prostate gland protruding into the posterior urinary bladder, cannot exclude an underlying bladder mass. Atherosclerosis. Colonic diverticulosis. Indeterminate sclerotic focus within the L1 vertebra, may reflect a bone island, cannot exclude a neoplastic process, consider bone scan for further evaluation. Electronically Signed: Odilia Recinos MD at 14:56 EST ,
== END | disposition home or self-care (01) ==
LOC: CT 14:48
PROVIDERS: PCP Family Medicine; Referring Provider Student in an Organized Health Care Education/Training Program; Visit Provider Student in an Organized Health Care Education/Training Program
DX: K59.00 Constipation, unspecified (principal)
CPT/HCPCS: 74177; Q9967

== ENCOUNTER 2024-08-27 05:52 | Day surgery (SDC) | payer MEDICARE, SELFPAY ==
[2024-08-27] VITALS (8 sets, daily range): BP systolic 100–117; BP diastolic 64–69; PULSE 70–74; RESP 16–18; TEMP 36.4–36.7; O2SAT 92–96; BMI 28.4
--- NOTE | 2024-08-27 06:49 | PCM.HP.STD ---
[facility] - General General Date of Admission: 08/27/24 Date of Service: 08/27/24 Chief Complaint: diarrhea HPI Narrative ANEL LOPEZ, is a 74 M who presents for the evaluation of increased stool frequency Pt has had increased stool frequency over the past 8 months with 6-8 bm per day. He has stool leakage with urination. Prior to this he had been very regular with one large bm per day. His father from colon cancer so this worries him. He underwent colonoscopy in January 2024 that just showed colonic diverticulosis. He has had about a 20 lbs weight loss over the past year. He is on three medications for diabetes including metformin. He has been on Metformin for many years but did farxiga around the same time these symptoms started. He has had GERD for many years with last EGD over 25 years ago. He has taken PPIs for many years which controls his symptoms. He denies abd pain, n/v, heartburn, melena or BRBPR. Colonoscopy 01.31.24; rectum normal, left colonic diverticulosis [facility] Medical History Wears glasses Bruising Arthritis Prostate disease Bladder disease High cholesterol Migraine headache Dietary restriction Gastric reflux Non-smoker CPAP (continuous positive airway pressure) dependence Sleep apnea Leg cramps Hypertension History of echocardiogram History of stress test Home Medications ?Medication ?Instructions ?Recorded ?Last Taken ?Type Niacin 500 mg PO 4X/DAY vitamin 06/10/18 Unknown History [place] 3 Fish Oil Softgel 1 tab PO DAILY supplement 06/10/18 Unknown History glipizide 5 mg tablet 5 mg PO TID diabetets 06/10/18 Unknown History lisinopril 20 mg tablet 20 mg PO DAILY blood pressure 06/10/18 Unknown History metoprolol tartrate 50 mg tablet 25 mg PO BID blood pressure 06/10/18 08/27/24 History sitagliptin phosphate 100 mg 100 mg PO DAILY diabetes 06/10/18 Unknown History tablet (Januvia) calcium 315 mg (as 1 tab PO 4X/DAY vitamin 06/11/18 Unknown History citrate)-vitamin D3 5 mcg (200 unit) tablet omeprazole 20 mg capsule,delayed 20 mg PO BID ##0 06/11/18 Unknown Rx release baclofen 10 mg tablet 10 mg PO QDAY 06/04/24 Unknown History dapagliflozin propanediol 10 mg 10 mg PO QAM 06/04/24 08/23/24 History tablet (Farxiga) TONIC WATER 75 ml PO QHS 08/19/24 Unknown History ascorbic acid (vitamin C) 500 mg 500 mg PO 4X/DAY 08/19/24 Unknown History tablet (C-500) aspirin 81 mg tablet,delayed 81 mg PO DAILY 08/19/24 08/23/24 History release (Adult Aspirin Regimen) ergocalciferol (vitamin D2) 1,250 1,250 mcg PO SA 08/19/24 Unknown History mcg (50,000 unit) capsule finasteride 5 mg tablet 5 mg PO DAILY 08/19/24 Unknown History ibandronate 150 mg tablet 150 mg PO QMONTH 08/19/24 Unknown History magnesium 250 mg tablet 250 mg PO DAILY 08/19/24 Unknown History metformin 1,000 mg tablet 1,000 mg PO BID 08/19/24 Unknown History oxybutynin chloride 15 mg 15 mg PO DAILY 08/19/24 Unknown History tablet,extended release 24 hr pregabalin 150 mg capsule 150 mg PO QHS 08/19/24 Unknown History pyridoxine (vitamin B6) 100 mg 100 mg PO DAILY 08/19/24 Unknown History tablet Allergy/AdvReac Type Severity Reaction Status Date / Time glyburide Allergy Rash Verified 08/27/24 06:16 sulindac (From Clinoril) Allergy Rash Verified 08/27/24 06:16 Surgical History History of surgery History of hernia repair Social History Smoking Status: Never smoker ROS Constitutional Constitutional: Denies fatigue, fever(s), poor appetite, weight gain or weight loss Gastrointestinal Gastrointestinal: Denies belching, bloating, change in bowel habits, change in stool character, chewing difficulty, coffee ground emesis, constipation, cramping, diarrhea, dyspepsia, dysphagia, early satiety, excessive flatus, fecal incontinence, heartburn, hematemesis, hematochezia, hemorrhoids, loose stools, melena, nausea, odynophagia, rectal bleeding, tenesmus, vomiting or weight changes Vital Signs Vital Signs Vital Signs: 08/27/24 06:17 08/27/24 06:17 Temperature 98.1 F Temperature Source Temporal Pulse Rate 72 Respiratory Rate 18 Respiratory Pattern Normal Blood Pressure 117/69 Blood Pressure Mean 85 Blood Pressure Source Monitor Blood Pressure Position Semi-Fowlers Blood Pressure Location Left Arm Pulse Ox 96 Oxygen Delivery Method Room Air Weight Weight: 198 lb 6.656 oz Body Mass Index (BMI) 28.4 Physical Exam Const alert, oriented x3, no apparent distress and healthy appearing General Appearance: cooperative GI normal to inspection, nondistended, normoactive bowel sounds, soft to palpation, non-tender and non-distended Percussion: normal to percussion Rectal Exam: deferred Assessment & Plan Assessment/Plan (1) Frequent stools: (2) Constipation: PLAN: Assessment and Plan Assessment and Plan (1) Frequent stools: Status: Acute Plan: This is a 74 yo male pt here today for establishment for change in his bowel movements. Over the past 8 months he has had issues with frequent bm 6-8 times per day and stool leakage with urination. He did undergo colonoscopy for this in January 2024 which was unremarkable besides diverticulosis. I will start him on fiber supplement. CT scan ordered as abdomen is distended on examination. I feel he may be suffering from constipation and poor rectal tone. He will undergo EGD to assess for Bar[place] as he has had chronic GERD for many years. He is agreeable to this plan. -EGD -CT abd pelvis -Fiber supplement -f/u in 3 months Orders: Orders Abdomen/Pelvis WITH Contrast Today K59.00 - Constipation, unspecified
[2024-08-27 06:53] LABS: Bedside Glucose 208 mg/dL (74-106)
--- NOTE | 2024-08-27 06:54 | PRE.ANES_ITS ---
ASA Classification* ASA Classification ASA Classification: 2 Assessment & Plan Anesthesia* Anesthesia Assessment Anesthesia Assessment: Discussed sedation and/or anesthesia options, risks, benefits, and alternatives with patient/parents/legal guardian/POA. Questions invited. The patient/parents/legal guardian/POA seems to understand and agrees to proceed with anesthesia plan. Reviewed the physical assessment, medical history, allergy history and patient home medications list prior to surgery/procedure/anesthetic and documented any changes. Performed airway and anesthesia risk assessments. Anesthesia Type Anesthesia Type: General History Source History Obtained from:: Patient Anesthesia Focused Assessment* Temperature: 98.1 F Pulse Rate: 72 Blood Pressure: 117/69 Respiratory Rate: 18 Pulse Ox: 96 Oxygen Delivery Method: Room Air Airway Assessment Mouth opens: >3 cm Mallampati Score: II Teeth Condition: Missing (only 7 on top , has most of bottom) Neck Range of motion (ROM): Full ROM Focused Labs Anesthesia Preop lab: CBC WBC 5.6 K/mm3 (4.4-11.0) 06/11/18 02:42 06/11/18 RBC 4.48 M/mm3 (4.6-6.2) L 06/11/18 02:42 06/11/18 Hgb 13.2 g/dl (13.0-16.5) 06/11/18 02:42 06/11/18 Hct 38.8 % (40-54) L 06/11/18 02:42 06/11/18 Plt Count 147 K/mm3 (150-450) L 06/11/18 02:42 06/11/18 CHEMISTRY Potassium 3.8 mmol/L (3.5-5.1) 06/11/18 02:42 06/11/18 Sodium 139 mmol/L (136-145) 06/11/18 02:42 06/11/18 BUN 13 mg/dL (7-18) 06/11/18 02:42 06/11/18 Creatinine 0.83 mg/dL (0.70-1.30) 06/11/18 02:42 06/11/18 Glucose 104 mg/dL (74-106) 06/11/18 02:42 06/11/18 POC Glucose 208 mg/dL (74-106) H 08/27/24 06:22 08/27/24 COAG PT 14.4 SECONDS (11.7-14.9) 06/11/18 02:42 Pre-Assessment Diagnosis/Proposed Procedure Planned Operative Procedure(s): EGD Anesthesia History 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 When Was Last Pacemaker Check QUESTION #4 FULL TEXT: You/Your Family Experience fever (hyperthermia) with Anesthesia Any additional information?: No Last Oral Intake Last Oral intake: Last Oral Intake NPO since 00:00 08/27/24 06:17 Meds taken in AM with sips of Yes 08/27/24 06:17 water? 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 Female No 08/21/24 11:57 HX of Motion Sickness Yes 08/21/24 11:57 HX of N/V After Surgery Yes 08/21/24 11:57 Non-Smoker Yes 08/21/24 11:57 Duration of Surgery greater No 08/21/24 11:57 than 60 minutes Number of Risk Factors 3 08/21/24 11:57 PONV Score Moderate Risk 08/21/24 11:57 Any additional information?: No Height & Weight Height & Weight: Anesthesia: Height & Weight Height 5 ft 10 in 08/27/24 06:17 Weight: 90 kg 08/27/24 06:17 Body Mass Index (BMI) 28.4 08/27/24 06:17 Respiratory Assessment Respiratory Assessment - 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 Has anyone observed you stop breathing during sleep? STOP Results Positive 08/21/24 11:57 QUESTION #5 FULL TEXT : Do you snore loudly (louder than talking or can be heard through closed doors)? 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 Specify any problems Hx of Preganancy in last 3 N/A 08/21/24 11:57 Months Nurse Filling Out Transfusion NBUCHER 08/21/24 11:57 & Questions: Date: 08/21/24 08/21/24 11:57 Time: 11:57 08/21/24 11:57 Patient unable to answer at this time (ie. 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 Hx Now No 08/21/24 11:57 Gestational Age (in weeks): EDC: Hx Hx Para Hx Section SAB No 08/19/24 15:36 Any additional information?: No PFSH Medical History Wears glasses Bruising Arthritis Prostate disease Bladder disease High cholesterol Migraine headache Dietary restriction Gastric reflux Non-smoker CPAP (continuous positive airway pressure) dependence Sleep apnea Leg cramps Hypertension History of echocardiogram History of stress test Home Medications ?Medication ?Instructions ?Recorded ?Last Taken ?Type Niacin 500 mg PO 4X/DAY vitamin Unknown History [place] 3 Fish Oil Softgel 1 tab PO DAILY supplement Unknown History glipizide 5 mg tablet 5 mg PO TID diabetets Unknown History lisinopril 20 mg tablet 20 mg PO DAILY blood pressur e 06/10/18 Unknown History metoprolol tartrate 50 mg tablet 25 mg PO BID blood pr essure 06/10/18 08/27/24 History sitagliptin phosphate 100 mg 100 mg PO DAILY diabetes 06/10/18 Unknown History tablet (Januvia) calcium 315 mg (as 1 tab PO 4X/DAY vitamin 05/20 10/04 Unknown History citrate)-vitamin D3 5 mcg (200 unit) tablet omeprazole 20 mg capsule,delayed 20 mg PO BID ##0 05/20 10/04 Unknown Rx release baclofen 10 mg tablet 10 mg PO QDAY 06/04/24 Unkno wn History dapagliflozin propanediol 10 mg 10 mg PO QAM 06/04/24 08/23/24 History tablet (Farxiga) TONIC WATER 75 ml PO QHS 08/19/24 Unknow n History ascorbic acid (vitamin C) 500 mg 500 mg PO 4X/DAY 09/10 Unknown History tablet (C-500) aspirin 81 mg tablet,delayed 81 mg PO DAILY 08/19/24 0 08/23/24 History release (Adult Aspirin Regimen) ergocalciferol (vitamin D2) 1,250 1,250 mcg PO SA 09/10 Unknown History mcg (50,000 unit) capsule finasteride 5 mg tablet 5 mg PO DAILY 08/19/24 Unkno wn History ibandronate 150 mg tablet 150 mg PO QMONTH 08/19/24 Un known History magnesium 250 mg tablet 250 mg PO DAILY 08/19/24 Unk nown History metformin 1,000 mg tablet 1,000 mg PO BID 08/19/24 Unk nown History oxybutynin chloride 15 mg 15 mg PO DAILY 08/19/24 Unkn own History tablet,extended release 24 hr pregabalin 150 mg capsule 150 mg PO QHS 08/19/24 Unkno wn History pyridoxine (vitamin B6) 100 mg 100 mg PO DAILY 5 Unknown History tablet Allergy/AdvReac Type Severity Reaction Status Date / Time glyburide Allergy Rash Verified 08/27/24 06:16 sulindac (From [place]) Allergy Rash Verified 08/27/24 06:16 Surgical History History of surgery History of hernia repair Social History Smoking Status: Never smoker Prior Cardiac Testing/Procedures Prior Cardiac Testing/Procedures: Stress Test (years ago -- negative result) Review of Systems (Anesthesia) ROS Narrative System reviewed and no additional complaints, except as documented. Physical Exam Const alert, oriented x3 and average body habitus Resp normal respiratory effort, normal air movement and clear to auscultation bilaterally Cardio regular rate, regular rhythm, no murmurs and diaphoretic
--- NOTE | 2024-08-27 07:00 | EGD_PTH ---
PATIENT: ANEL LOPEZ LOC: EN U#:[id number] AGE/SX: 74/M ROOM: RE08/27/[address]: Dr. Rashawn Villegas DO : 1950 BED: DIS: 08/27/2024 SPEC #: [id number] RECD: 08/27/24 09:50 STATUS: HARLEY REElizabeth #: [id number] CATARINA: 08/27/24 07:[address]: Rashawn Villegas DEPT: SURGICAL PATHOLOGY RECD BY: Jani Garcia ENTERED: 08/27/24 09:50 SP TYPE: EGD BIOPSY VIKKI DR: Dr. Georgi Champion DO Tissues: A - Duodenum, NOS B - Gastric mucous membrane C - Esophagus, NOS Procedures: Surgery Specimen Level IV HEADER OPERATION: EGD PRE-OP DIAGNOSIS: Frequent stools, constipation TISSUE SUBMITTED: A- Duodenum biopsy, B- Gastric body biopsy, C- Distal esophagus biopsy MICROSCOPIC DIAGNOSIS A: DUODENUM, BIOPSY: * Normal villous architecture, negative for increased intraepithelial lymphocytes. B: STOMACH, BODY, BIOPSY: * Oxyntic mucosa with features of reactive gastropathy. * Negative for Helicobacter-like organisms (H&E). C: DISTAL ESOPHAGUS, BIOPSY: * Squamous mucosa with mild reactive change. * Columnar mucosa with goblet cell metaplasia - see note. * Negative for dysplasia. * Note: The diagnosis depends on the location of the biopsy and the extent of the mucosal irregularity. If the biopsy originates from the tubular esophagus and the mucosal irregularity extends at least 1 cm above the top of the gastric folds, this represents Mor[place] mucosa. If the biopsy originates from the gastric cardia and or the mucosal irregularity is less than 1 cm in extent, this represents intestinal metaplasia. MICROSCOPIC DESCRIPTION Slides are reviewed. GROSS DESCRIPTION A. Received in fixative is one container labeled with the patient's name and designated Duodenum biopsy. The specimen consists of two irregular fragments of light sandhu soft tissue that in aggregate measure 0.8 x 0.2 x 0.2 cm. The specimen is totally submitted in one cassette. B. Received in fixative is one container labeled with the patient's name and designated Gastric body biopsy. The specimen consists of multiple irregular fragments of light sandhu soft tissue that in aggregate measure 1.3 x 0.3 x 0.2 cm. The specimen is totally submitted in one cassette. C. Received in fixative is one container labeled with the patient's name and designated Distal esophagus biopsy. The specimen consists of multiple irregular fragments of light sandhu soft tissue that in aggregate measure 1.6 x 0.2 x 0.2 cm. The specimen is totally submitted in one cassette. mr 08/27/2024 CPT:29777d4
--- NOTE | 2024-08-27 07:30 | OP.EGD_ITS ---
Patient Name: Win Elizalde Procedure Date: 08/27/2024 7:09 AM Date of : 1950 Age: 74 Procedure: Upper GI endoscopy Indications: Functional Dyspepsia Providers: Rashawn Villegas DO Referring MD: Georgi Champion Medicines: Monitored Anesthesia Care Patient Profile: This is a 74 year old male. Refer to note in patient chart for documentation of history and physical. Patient has symptoms of chronic abdominal cramping, chronic dyspepsia and chronic nausea. Complications: No immediate complications. Procedure: Pre-Anesthesia Assessment: - Prior to the procedure, a History and Physical was performed, and patient medications and allergies were reviewed. The patient is competent. The risks and benefits of the procedure and the sedation options and risks were discussed with the patient. All questions were answered and informed consent was obtained. Patient identification and proposed procedure were verified by the physician in the pre-procedure area. Mental Status Examination: alert and oriented. Airway Examination: normal oropharyngeal airway and neck mobility. Respiratory Examination: clear to auscultation. CV Examination: normal. Prophylactic Antibiotics: The patient does not require prophylactic antibiotics. Prior Anticoagulants: The patient has taken no anticoagulant or antiplatelet agents. ASA Grade Assessment: II - A patient with mild systemic disease. After reviewing the risks and benefits, the patient was deemed in satisfactory condition to undergo the procedure. The anesthesia plan was to use monitored anesthesia care (MAC). Immediately prior to administration of medications, the patient was re-assessed for adequacy to receive sedatives. The heart rate, respiratory rate, oxygen saturations, blood pressure, adequacy of pulmonary ventilation, and response to care were monitored throughout the procedure. The physical status of the patient was re-assessed after the procedure. After obtaining informed consent, the endoscope was passed under direct vision. Throughout the procedure, the patient's blood pressure, pulse, and oxygen saturations were monitored continuously. The gastroscope was introduced through the mouth, and advanced to the second part of duodenum. The upper GI endoscopy was accomplished without difficulty. The patient tolerated the procedure well. Scope In: 7:20:18 AM Scope Out: 7:25:33 AM Total Procedure Duration Time 0 hours 5 minutes 15 seconds Findings: The Z-line was irregular and was found 39 cm from the incisors. Biopsies were taken with a cold forceps for histology. Verification of patient identification for the specimen was done. Estimated blood loss was minimal. A small hiatal hernia was present. Diffuse severe inflammation characterized by congestion (edema), erythema and friability was found in the entire examined stomach. Biopsies were taken with a cold forceps for histology. Verification of patient identification for the specimen was done. Estimated blood loss was minimal. Biopsies were taken with a cold forceps for Helicobacter pylori testing. Verification of patient identification for the specimen was done. Estimated blood loss was minimal. Patchy mild inflammation characterized by erythema was found in the second portion of the duodenum. Biopsies were taken with a cold forceps for histology. Verification of patient identification for the specimen was done. Estimated blood loss was minimal. Impression: - Z-line irregular, 39 cm from the incisors. Biopsied. - Small hiatal hernia. - Chronic bile gastritis. Biopsied. - Bile duodenitis. Biopsied. Recommendation: - Discharge patient to home. - Resume previous diet. - Continue present medications. - Await pathology results. Procedure Code(s): --- Professional --- 46060, Esophagogastroduodenoscopy, flexible, transoral; with biopsy, single or multiple CPT copyright 2021 [employer]. All rights reserved. The codes documented in this report are preliminary and upon manager business intelligence review may be revised to meet current compliance requirements. Rashawn Villegas DO 08/27/2024 7:29:35 AM This report has been signed electronically. Number of Addenda: 0 Note Initiated On: 08/27/2024 7:09 AM
--- NOTE | 2024-08-27 07:30 | OP.CCLET_ITS ---
08/27/2024 Georgi Champion Re : Upper GI endoscopy procedure for Win Elizalde Dear Jaycee This procedure was performed on Tuesday, August 27, 2024. My impressions and recommendations are as follows: Impressions : - Z-line irregular, 39 cm from the incisors. Biopsied. - Small hiatal hernia. - Chronic bile gastritis. Biopsied. - Bile duodenitis. Biopsied. Recommendations : - Discharge patient to home. - Resume previous diet. - Continue present medications. - Await pathology results. My findings are described in the full procedure note, which is enclosed. If I can be of further assistance, please feel free to contact me at . Sincerely, Rashawn Villegas, 08/27/2024 7:29:35 AM This report has been signed electronically.
--- NOTE | 2024-08-27 07:33 | PCM.POST.ANE ---
Anesthesia: Postop Eval I Current Vital Signs Temperature: 97.6 F Pulse Rate: 74 Blood Pressure: 104/64 Respiratory Rate: 16 Pulse Ox: 93 Oxygen Delivery Method: Room Air Assessment Airway patent: Yes Spontaneous unlabored respirations: Yes Mental status: Asleep nausea: No Vomiting: No Anesthesia Complication: No Fluid Hydration Crystalloid volume administer (ml): 30 Total IV fluid infused: 30 Progress Note Anesthesia document: Postop Eval 1 completed: Yes
--- NOTE | 2024-08-27 07:58 | PCM.POSTANE2 ---
Anesthesia Postop Eval I Sum Postop Eval Completion status Anesthesia document: Postop Eval 1 completed: Yes Anesthesia Postop Eval I Summary Anesthesia Postop Eval I Summary: Anesthesia Postop Eval I: Assessment Summary Airway patent Yes 08/27/24 07:34 [email or web address] Spontaneous unlabored Yes 08/27/24 07:34 [email or web address] respirations Mental status Asleep 08/27/24 07:34 [email or web address] nausea No 08/27/24 07:34 [email or web address] Vomiting No 08/27/24 07:34 [email or web address] Anesthesia Postop Eval I: Fluid Summary Crystalloid volume administer 30 08/27/24 07:34 [email or web address] (ml) Colloids volume administered ( ml) Blood Product volume administered (ml) Total IV fluid infused 30 08/27/24 07:34 [email or web address] Anesthesia Postop Eval I: Summary Notes Anesthesia Complication No 08/27/24 07:34 [email or web address] Anesthesia Complication Comment: Post-operative progress note Anesthesia: Postop Eval II Evaluation Mental status: Awake and Calm Pain Level: 0 nausea: No Vomiting: No Complications Anesthesia Complication: No
== END 2024-08-27 08:10 | disposition home or self-care (01) ==
LOC: EN 05:53 → AC 05:53
PROVIDERS: PCP Family Medicine; Referring Provider Family Medicine; Visit Provider Internal Medicine Gastroenterology
PROC: 0DJ08ZZ Inspection of Upper Intestinal Tract, Via Natural or Artificial Opening Endoscopic (ICD-10-PCS; CPT 43235; principal; 2024-08-27 06:55)
DX: R19.7 Diarrhea, unspecified (principal); E11.9 Type 2 diabetes mellitus without complications; K44.9 Diaphragmatic hernia without obstruction or gangrene; K29.50 Unspecified chronic gastritis without bleeding; K21.9 Gastro-esophageal reflux disease without esophagitis; K29.80 Duodenitis without bleeding; Z79.84 Long term (current) use of oral hypoglycemic drugs; I10 Essential (primary) hypertension; E78.00 Pure hypercholesterolemia, unspecified; Z80.0 Family history of malignant neoplasm of digestive organs; G47.30 Sleep apnea, unspecified; Z99.89 Dependence on other enabling machines and devices; Z79.899 Other long term (current) drug therapy; K59.00 Constipation, unspecified; K22.89 Other specified disease of esophagus
CPT/HCPCS: 43239; 82962; 88305; A4216; J2405